=== PATIENT | male | born 1995 | race Caucasian/White ===

== ENCOUNTER 2019-08-06 06:05 | Emergency (ER) | payer SELFPAY ==
[~2019-08-06] VITALS: Ht 175.3 cm; Wt 77.1 kg
--- NOTE | 2019-08-06 06:05 | NUR ---
Patient to ER chair 1 for evaluation. Side rails up.
--- NOTE | 2019-08-06 06:10 | NUR ---
ER at bedside examining patient.
[2019-08-06 06:19] VITALS: BP_SYST 121
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
[2019-08-06 07:00] VITALS: BP_SYST 121
--- NOTE | 2019-08-06 07:00 | NUR ---
Patient given written and verbal discharge instructions and verbalizes understanding. ER MD Dr. Olivera discussed with patient the results and treatment provided. Patient in stable condition. ID arm band removed. Patient educated on pain management and to follow up with PMD. Pain Scale 0/10. Opportunity for questions provided and answered. Medication side effect fact sheet provided.
== END 2019-08-06 07:00 ==
LOC: SED 06:05
DX: Z02.89 Encounter for other administrative examinations (principal); Z88.1 Allergy status to other antibiotic agents; V49.9XXA Car occupant (driver) (passenger) injured in unspecified traffic accident, initial encounter; Y92.413 State road as the place of occurrence of the external cause; Y93.89 Activity, other specified; Y99.8 Other external cause status
CPT/HCPCS: 99283